=== PATIENT | female | born 1985 | race African-American/Black ===

== ENCOUNTER 2018-10-05 07:18 | Day surgery (SDC) | payer MEDICAID ==
[2018-10-03 17:03] LABS: PREOP HCG, QL SERUM NEGATIVE (NEGATIVE)
[2018-10-03 17:06] LABS: BASOPHILS % (AUTO) 0.4 % (0-1); EOSINOPHILS % (AUTO) 0.6 % (0-6); LYMPHOCYTES # (AUTO) 1.8 X10'3 (1.1-4.8); LYMPHOCYTES % (AUTO) 26.3 % (21-51); MEAN CORPUSCULAR HEMOGLOBIN 33.2 PG (27.0-31.0); MEAN CORPUSCULAR HGB CONC 33.5 g/dL (33.0-36.5); MEAN PLATELET VOLUME 9.6 FL (7.4-10.4); MONOCYTES # (AUTO) 0.3 X10'3 (0-0.9); MONOCYTES % (AUTO) 4.9 % (2-12); NEUTROPHILS # (AUTO) 4.5 X10'3 (1.8-7.7); NEUTROPHILS % (AUTO) 67.8 % (42-75); PRE OP HEMATOCRIT 40.5 % (35.0-45.0); PRE OP HEMOGLOBIN 13.6 g/dL (12.0-16.0); PRE OP PLATELET COUNT 285 X10'3 (140-440); RED BLOOD COUNT 4.09 X10'6 (4.20-5.60); RED CELL DISTRIBUTION WIDTH 13.6 % (11.5-14.5)
[2018-10-03 17:30] LABS: ALBUMIN 3.5 G/DL (3.4-5.0); ALBUMIN/GLOBULIN RATIO 0.8 (1.1-1.5); ALKALINE PHOSPHATASE 98 IU/L (46-116); BLOOD UREA NITROGEN 10 MG/DL (7-18); BUN/CREATININE RATIO 11.9 (6.6-38.0); CALCIUM 9.6 MG/DL (8.5-10.1); CHLORIDE 107 MMOL/L (99-107); CREATININE 0.84 MG/DL (0.40-0.90); PRE OP ALT 41 U/L (30-65); PRE OP ANION GAP 10 (8-16); PRE OP AST 19 U/L (10-37); PRE OP BILIRUB, TOTAL 0.3 MG/DL (0.0-1.0); PRE OP GLUCOSE 100 MG/DL (70-104); PRE OP POTASSIUM 3.6 MMOL/L (3.4-5.1); PRE OP SODIUM 141 MMOL/L (135-145); TOTAL CARBON DIOXIDE 24.5 MMOL/L (24-32); TOTAL PROTEIN 7.7 G/DL (6.4-8.2); eGFR > 90 ML/MIN
[~2018-10-05] VITALS: Ht 165.1 cm; Wt 100.7 kg
[2018-10-05] VITALS (7 sets, daily range): BP systolic 118–140; BP diastolic 80–88
[~2018-10-05 07:18] MED LIST: CBD; [UNRECOGNIZED DRUG - OTHER]; ringers solution, lacted 1,000 ML IV SCH
[2018-10-05] MEDS ORDERED: ringers solution, lacted 1,000 ML IV SCH (07:44)
[2018-10-05] MEDS ORDERED: ondansetron/PF 4mg/2ml inj IV PRN (07:45)
[2018-10-05] MEDS ORDERED: proCHLORperazine 10 MG/2 ml inj IV PRN (07:45)
[2018-10-05] MEDS ORDERED: meperidine/PF 25mg/ml syringe IV PRN ×3 (07:45)
[2018-10-05] MEDS ORDERED: morphine 4 MG/ML inj SYRINge IV PRN ×2 (07:45)
[2018-10-05] MEDS ORDERED: famotidine 20mg tablet PO ONE (07:50)
[2018-10-05] MEDS ORDERED: sevoflurane 250ml liquid IH ONE (09:26)
[2018-10-05] MEDS ORDERED: midazolam 2 mg/2 ml injection ONE (09:27)
[2018-10-05] MEDS ORDERED: fentaNYL/PF 50MCG/1 ML 2ML syringe ONE (09:27)
[2018-10-05] MEDS ORDERED: ondansetron/PF 4mg/2ml inj ONE (09:38)
[2018-10-05] MEDS ORDERED: glycopyrrolate 0.2mg/ml inj ONE (09:38)
[2018-10-05] MEDS ORDERED: propofol inj 20 ML IV ONE (09:38)
[2018-10-05] MEDS ORDERED: neostigmine methylsulfate 1 MG/ML 10ml vial ONE (09:38)
[2018-10-05] MEDS ORDERED: dexamethasone sod phosphate 4mg/ml inj. ONE (09:38)
[2018-10-05] MEDS ORDERED: rocuronium 10mg/ml inj IV ONE (09:38)
[2018-10-05] MEDS ORDERED: LIDOcaine 2% (20mg/ml) 5ml vial ONE (09:38)
--- NOTE | 2018-10-05 10:10 | NUR ---
Received from OR via bed, accompanied by Anesthesiologist. Report received. Initial physical assessment done and recorded.
--- NOTE | 2018-10-05 11:00 | NUR ---
Discharged home in good condition. No complaints of pain during post op period, no pain meds given no complaintsDischarge criteria met, discharge instructions given, demonstrates verbal understanding.
== END 2018-10-05 11:00 | disposition home or self-care (01) ==
LOC: PAS 07:18
PROVIDERS: ATTEND Obstetrics & Gynecology
DX: Z30.2 Encounter for sterilization (principal); J45.909 Unspecified asthma, uncomplicated; Z98.890 Other specified postprocedural states; Z91.013 Allergy to seafood; Z79.899 Other long term (current) drug therapy
CPT/HCPCS: 36415; 58670; 80053; 82948; 84703; 85025; J1100; J2001; J2250; J2405; J2704; J2710; J3010; J7120; A7000; J3490

== ENCOUNTER 2020-05-04 07:42 | Day surgery (SDC) | payer MEDICAID ==
[2020-05-01 16:03] LABS: BASOPHILS % (AUTO) 0.7 % (0-1); EOSINOPHILS # (AUTO) 0.1 X10'3 (0-0.9); EOSINOPHILS % (AUTO) 2.2 % (0-6); LYMPHOCYTES # (AUTO) 1.8 X10'3 (1.1-4.8); MEAN CORPUSCULAR HEMOGLOBIN 32.8 PG (27.0-31.0); MEAN CORPUSCULAR VOLUME 99.3 FL (78-98); MONOCYTES # (AUTO) 0.3 X10'3 (0-0.9); MONOCYTES % (AUTO) 5.3 % (2-12); NEUTROPHILS # (AUTO) 3.2 X10'3 (1.8-7.7); NEUTROPHILS % (AUTO) 58.8 % (42-75); PRE OP HEMATOCRIT 33.2 % (35.0-45.0); PRE OP PLATELET COUNT 298 X10'3 (140-440); RED BLOOD COUNT 3.34 X10'6 (4.20-5.60)
[2020-05-01 16:16] LABS: HCG SERUM QL NEGATIVE
[2020-05-01 16:19] LABS: PRE OP INR 1.2 INR; PRE OP PROTIME 12.4 SECONDS (9.0-12.0)
[2020-05-01 16:21] LABS: ALBUMIN 3.8 G/DL (3.4-5.0); ALKALINE PHOSPHATASE 70 IU/L (46-116); BLOOD UREA NITROGEN 6 MG/DL (7-18); BUN/CREATININE RATIO 7.6 (6.6-38.0); CALCIUM 9.2 MG/DL (8.5-10.1); CHLORIDE 108 MMOL/L (99-107); CREATININE 0.79 MG/DL (0.40-0.90); PRE OP ALT 20 U/L (30-65); PRE OP ANION GAP 5 (8-16); PRE OP AST 14 U/L (10-37); PRE OP BILIRUB, TOTAL 0.4 MG/DL (0.0-1.0); PRE OP GLUCOSE 84 MG/DL (70-104); PRE OP POTASSIUM 3.5 MMOL/L (3.4-5.1); PRE OP SODIUM 141 MMOL/L (135-145); TOTAL CARBON DIOXIDE 27.8 MMOL/L (24-32); TOTAL PROTEIN 7.5 G/DL (6.4-8.2); eGFR > 90 ML/MIN
[~2020-05-04] VITALS: Ht 162.6 cm; Wt 69.3 kg
[2020-05-04] VITALS (36 sets, daily range): BP systolic 110–141; BP diastolic 73–99
[~2020-05-04 07:42] MED LIST changes: -CBD; +NO HOME MEDS; -[UNRECOGNIZED DRUG - OTHER]; +ceFOXitin 2GM-NS 100mL ADDvant 100 ML IV ONE; +famotidine 20mg tablet PO ONE
[2020-05-04] MEDS ORDERED: fentaNYL/PF 50MCG/1 ML 2ML syringe IV PRN ×2 (10:05)
[2020-05-04] MEDS ORDERED: ringers solution, lacted 1,000 ML IV SCH (10:05)
[2020-05-04] MEDS ORDERED: ondansetron/PF 4mg/2ml inj IV PRN (10:05)
[2020-05-04] MEDS ORDERED: labetalol 20mg/4ml (5mg/ml) syringe IV PRN (10:05)
[2020-05-04] MEDS ORDERED: hydrALAZINE 20mg/ml inj. IV PRN (10:05)
[2020-05-04] MEDS ORDERED: morphine 4 MG/ML inj SYRINge IV PRN (10:05)
[2020-05-04] MEDS ORDERED: morphine 2 MG/ML inj. syringe IV PRN (10:05)
[2020-05-04] MEDS ORDERED: fentaNYL/PF 50MCG/1 ML 2ML syringe ONE (10:09)
[2020-05-04] MEDS ORDERED: LIDOcaine 2% (20mg/ml) 5ml vial ONE (10:09)
[2020-05-04] MEDS ORDERED: midazolam 2 mg/2 ml injection ONE (10:09)
[2020-05-04] MEDS ORDERED: propofol inj 20 ML IV ONE (10:09)
[2020-05-04] MEDS ORDERED: ketorolac trometh. 30mg/ml inj. ONE (10:10)
[2020-05-04] MEDS ORDERED: ondansetron/PF 4mg/2ml inj ONE (10:10)
[2020-05-04] MEDS ORDERED: dexamethasone sod phosphate 4mg/ml inj. ONE (10:25)
--- NOTE | 2020-05-04 10:57 | NUR ---
Received from OR via CASA, accompanied by Anesthesiologist DR ESTRELLA and report given by Anesthesiologist. PT VERY DROWSY, NO S/S OF DISTRESS/DISCOMFORT. GENOVEVA PAD IN PLACE, SMALL AMT OF BLOODY DRAINAGE ON PAD. Addendum: 05/04/20 at 1119 by Saray Collier RN Amended: Links added.
[2020-05-04] MEDS ORDERED: metoclopramide 5 mg/ml inj IV ONE (12:50)
--- NOTE | 2020-05-04 14:32 | NUR ---
PT UP AND ABLE TO VOID, PT STILL FEELS SLEEPY AND SLIGHTLY LIGHT HEADED WITH AMBULATION, WILL CONTINUE TO MONITOR AND INFORM DR GIL. LEE. Addendum: 05/04/20 at 1434 by Saray Collier RN Amended: Links added.
--- NOTE | 2020-05-04 14:55 | NUR ---
PT RESTING W/EYES CLOSED, HAD A HEART PAUSE, APPROXIMATELY 4 SECONDS, PT WAS SLEEPING STATED SHE DID NOT FEEL ANYTHING, RECHECKED BP, STABLE, CALL INTO DR TALLEY AND DR CARBAJAL UPDATED BOTH, DR CARBAJAL CALLED FOR A CARDIOLOGY CONSULT, AWAITING DR GONZALEZ TO ARRIVE. Addendum: 05/04/20 at 1725 by Saray Collier RN Amended: Links added.
--- NOTE | 2020-05-04 17:17 | NUR ---
DR GRADY OBANDO CAME IN TO SEE PT, LOOKED AT EKG AND STRIP FROM PACU CM W/PAUSE, ASSESSED PT, PLAN IS TO HAVE PT CONTACT HIS OFFICE TOMORROW AND COME IN AND GET A 48 HOUR CM HALTER AND D/C PT TO HOME. CALL INTO DR CARBAJAL AND DR TALLEY FOR UPDATE, BOTH IN AGREEMENT W/CARDIOLOGY ASSESSMENT AND OKAY TO D/C PT TO HOME. D/C INSTRUCTIONS GIVEN AND GONE OVER W/PT AND PTS WHO VERBALIZE UNDERSTANDING. PT D/CD VIA W/C TO PRIVATE VEHICLE W/O INCIDENT. Addendum: 05/04/20 at 1732 by Saray Collier RN Amended: Links added.
== END 2020-05-04 17:17 | disposition home or self-care (01) ==
LOC: PAS 07:42
PROVIDERS: ATTEND Obstetrics & Gynecology
DX: N93.9 Abnormal uterine and vaginal bleeding, unspecified (principal); N94.6 Dysmenorrhea, unspecified; D25.0 Submucous leiomyoma of uterus; G43.909 Migraine, unspecified, not intractable, without status migrainosus; F32.9 Major depressive disorder, single episode, unspecified; J45.909 Unspecified asthma, uncomplicated; F12.90 Cannabis use, unspecified, uncomplicated; Z87.891 Personal history of nicotine dependence; Z91.013 Allergy to seafood; Z20.828 Contact with and (suspected) exposure to other viral communicable diseases; Z79.01 Long term (current) use of anticoagulants; Z79.899 Other long term (current) drug therapy; Z98.51 Tubal ligation status; Z98.890 Other specified postprocedural states
CPT/HCPCS: 36415; 58353; 80053; 82948; 84703; 85025; 85610; 85730; 86885; 86900; 86901; 86922; 87635; 93005; J0694; J1100; J1885; J2001; J2250; J2270; J2405; J2704; J2765; J3010; J7030; 86920; A4264; A4618; J7120

== ENCOUNTER 2022-01-24 05:27 | Day surgery (SDC) | payer MEDICAID ==
[2022-01-19 11:49] LABS: BASOPHILS % (AUTO) 0.7 % (0-1); EOSINOPHILS # (AUTO) 0.1 X10'3 (0-0.9); EOSINOPHILS % (AUTO) 2.5 % (0-6); LYMPHOCYTES % (AUTO) 24.7 % (21-51); MEAN CORPUSCULAR HEMOGLOBIN 34.1 PG (27.0-31.0); MEAN CORPUSCULAR HGB CONC 33.7 g/dL (33.0-36.5); MEAN CORPUSCULAR VOLUME 101.2 FL (78-98); MEAN PLATELET VOLUME 9.5 FL (7.4-10.4); MONOCYTES # (AUTO) 0.3 X10'3 (0-0.9); MONOCYTES % (AUTO) 7.4 % (2-12); NEUTROPHILS # (AUTO) 2.5 X10'3 (1.8-7.7); NEUTROPHILS % (AUTO) 64.7 % (42-75); PRE OP HEMATOCRIT 37.2 % (35.0-45.0); PRE OP HEMOGLOBIN 12.5 g/dL (12.0-16.0); PRE OP PLATELET COUNT 239 X10'3 (140-440); RED BLOOD COUNT 3.67 X10'6 (4.20-5.60); RED CELL DISTRIBUTION WIDTH 13.8 % (11.5-14.5)
[2022-01-19 12:01] LABS: CLARITY,URINE CLEAR (Clear); COLOR,URINE YELLOW (Yellow); GLUCOSE, URINE NEGATIVE (Neg); KETONES,URINE NEGATIVE (Neg); LEUKOCYTE ESTERASE ,URINE NEGATIVE (Neg); NITRITES, URINE NEGATIVE (Neg); OCCULT BLOOD,URINE TRACE-INTACT (Neg); PH,URINE 5.5 (4.8-8.0); PROTEIN,URINE NEGATIVE (Neg); UROBILINOGEN,URINE 0.2 E.U/dL (0.2-1.0)
[2022-01-19 12:05] LABS: HCG SERUM QL NEGATIVE
[2022-01-19 12:07] LABS: UA COLLECTION TYPE FOLEY CATH
[2022-01-19 12:18] LABS: ALBUMIN 3.7 G/DL (3.4-5.0); ALKALINE PHOSPHATASE 70 IU/L (46-116); BLOOD UREA NITROGEN 9 MG/DL (7-18); BUN/CREATININE RATIO 11.3 (6.6-38.0); CALCIUM 8.6 MG/DL (8.5-10.1); CHLORIDE 109 MMOL/L (99-107); PRE OP ALT 27 U/L (30-65); PRE OP ANION GAP 10 (8-16); PRE OP AST 25 U/L (10-37); PRE OP BILIRUB, TOTAL 0.6 MG/DL (0.0-1.0); PRE OP GLUCOSE 85 MG/DL (70-104); PRE OP SODIUM 146 MMOL/L (135-145); TOTAL CARBON DIOXIDE 27.1 MMOL/L (24-32); TOTAL PROTEIN 7.4 G/DL (6.4-8.2); eGFR > 90 ML/MIN
[2022-01-19 12:20] LABS: PRE OP POTASSIUM 3.3 MMOL/L (3.4-5.1)
[2022-01-19 12:33] LABS: MUCUS STRANDS MODERATE /LPF (Neg); SQUAMOUS EPITHELIAL CELL,UR MANY /LPF (FEW)
[2022-01-19 12:34] LABS: RBC,URINE 0-2 /HPF (0-2); WBC,URINE 0-4 /HPF (0-4)
[2022-01-19 12:38] LABS: BACTERIA,URINE 1+ /HPF (Neg)
[2022-01-24] VITALS (28 sets, daily range): BP systolic 116–149; BP diastolic 79–99
[~2022-01-24] VITALS: Ht 175.3 cm; Wt 72.0 kg
[~2022-01-24 05:27] MED LIST changes: -ceFOXitin 2GM-NS 100mL ADDvant 100 ML IV ONE; -famotidine 20mg tablet PO ONE; -ringers solution, lacted 1,000 ML IV SCH
[2022-01-24] MEDS ORDERED: famotidine 20mg tablet PO ONE (05:30)
[2022-01-24] MEDS ORDERED: ceFOXitin 2GM-NS 100mL ADDvant 100 ML IV ONE (05:30)
[2022-01-24] MEDS: ringers solution, lacted 1,000 ML IV SCH ×7 (06:24→23:30)
[2022-01-24] MEDS ORDERED: BUPIVAcaine/PF 5 mg/ml 10ml ONE (06:45)
[2022-01-24] MEDS ORDERED: LIDOcaine 1% W/epiNEPHrine 1:100,000 20ml vial ONE (06:46)
[2022-01-24] MEDS ORDERED: ceFAZolin 1000mg inj ONE (06:46)
[2022-01-24] MEDS ORDERED: meperidine/PF 25mg/ml syringe IV PRN ×2 (07:35)
[2022-01-24] MEDS ORDERED: ringers solution, lacted 1,000 ML IV SCH (07:35)
[2022-01-24] MEDS ORDERED: HYDROmorphone/PF 0.2 MG/ML SYRINGE IV PRN (07:35)
[2022-01-24] MEDS ORDERED: ondansetron/PF 4mg/2ml inj IV PRN ×2 (07:35→10:10)
[2022-01-24] MEDS ORDERED: sevoflurane 250ml liquid IH ONE (07:42)
[2022-01-24] MEDS ORDERED: midazolam 1 mg/ML 2ml injection ONE (07:42)
[2022-01-24] MEDS ORDERED: fentaNYL /PF 50mcg/ml 5ml ampule ONE (07:43)
[2022-01-24] MEDS ORDERED: fluoroscein sod 10% (100mg/ml) 5ml vial ONE (09:54)
[2022-01-24] MEDS ORDERED: rocuronium 10mg/ml inj IV ONE (09:54)
[2022-01-24] MEDS ORDERED: glycopyrrolate 0.2mg/ml inj ONE (09:54)
[2022-01-24] MEDS ORDERED: neostigmine methylsulfate 1 MG/ML 10ml vial ONE (09:54)
[2022-01-24] MEDS ORDERED: dexamethasone sod phosphate 4mg/ml inj. ONE (09:54)
[2022-01-24] MEDS ORDERED: propofol inj 20 ML IV ONE (09:54)
[2022-01-24] MEDS ORDERED: LIDOcaine 2% (20mg/ml) 5ml vial ONE (09:54)
[2022-01-24] MEDS ORDERED: ondansetron/PF 4mg/2ml inj ONE (09:54)
[2022-01-24] MEDS ORDERED: acetaminophen 1,000mg/100ml IV 100 ML IV ONE (10:02)
[2022-01-24] MEDS ORDERED: diphenhydrAMINE 50 mg/ml inj IV PRN (10:10)
[2022-01-24] MEDS ORDERED: naloxone 0.4 mg/ml inj IV PRN (10:10)
[2022-01-24] MEDS ORDERED: oxyCODONE/APAP 5-325mg tablet PO PRN (10:10)
[2022-01-24] MEDS ORDERED: mag hydrox/Alum hydrox/simeth 30ml oral suspension PO PRN (10:10)
[2022-01-24] MEDS ORDERED: temazepam 15mg capsule PO PRN (10:10)
[2022-01-24] MEDS ORDERED: normal saline 500ML IV soln IV PRN (10:10)
[2022-01-24] MEDS ORDERED: sugammadex 200mg/2ml injection IV ONE (10:15)
--- NOTE | 2022-01-24 10:16 | NUR ---
Received from OR via BED, accompanied by Anesthesiologist DR DELANEY and report given by Anesthesiologist AND FIGHT MANAGER. PT VERY DROWSY W/ETT IN PLACE, NO S/S OF DISTRESS/DISCOMFORT. PT ABDOMEN W/3 LAP SITES W/DERMABOND AND STERI-STRIPS/BAND AIDS COVERING CDI, GENOVEVA PAD IN PLACE, NO DRAINAGE. GOLDEN CATHETER TO GRAVITY DRAINAGE W/BRIGHT YELLOW/URINE IN DRAINAGE BAG. Addendum: 01/24/22 at 1043 by Saray Collier RN Amended: Links added.
[2022-01-24] MEDS: ketorolac trometh. 30mg/ml inj. IV PRN ×3 (10:46→23:29)
[2022-01-24] MEDS: HYDROmorphone/PF 0.2 MG/ML SYRINGE IV PRN ×6 (10:58→12:36)
--- NOTE | 2022-01-24 12:56 | NUR ---
Report called to receiving nurse. Transferred via BED 1 BAG Belongings SENT W/PT TO ROOM 4012B, BLL, CALL LIGHT GIVEN, SIDE RAILS UP X 2. NURSES AID AT BEDSIDE TO RECEIVE PT, PTS S/O PRESENT, RECEIVING RN NOTIFIED OF PTS ARRIVAL. Special Issues communicated to receiving nurse. YES. Addendum: 01/24/22 at 1400 by Saray Collier RN Amended: Links added.
[2022-01-24] MEDS: oxyCODONE/APAP 5-325mg tablet PO PRN ×2 (15:19→20:01)
[2022-01-24] MEDS: simethicone 80mg chew tab PO SCH ×2 (15:19→17:16)
--- NOTE | 2022-01-24 18:24 | NUR ---
Problems reprioritized. Patient report given, questions answered & plan of care reviewed with Ciara LAZO.
[2022-01-24] MEDS: docusate sod 100mg capsule PO SCH (19:46)
[2022-01-25 02:31] VITALS: BP 123/70
[2022-01-25 06:00] VITALS: BP 112/66
--- NOTE | 2022-01-25 06:50 | NUR ---
SHIMA HENLEY D/C'Deborah PERRY Addendum: 01/25/22 at 0651 by Arina Wills RN Amended: Links added.
[2022-01-25 07:05] LABS: BASOPHILS % (AUTO) 0.2 % (0-1); EOSINOPHILS % (AUTO) 0.2 % (0-6); HEMATOCRIT 29.6 % (35.0-45.0); HEMOGLOBIN 10.1 g/dl (12.0-16.0); LYMPHOCYTES # (AUTO) 1.1 X10'3 (1.1-4.8); LYMPHOCYTES % (AUTO) 11.8 % (21-51); MEAN CORPUSCULAR HEMOGLOBIN 34.5 PG (27.0-31.0); MEAN CORPUSCULAR HGB CONC 34.3 g/dL (33.0-36.5); MEAN CORPUSCULAR VOLUME 100.8 FL (78-98); MEAN PLATELET VOLUME 9.9 FL (7.4-10.4); MONOCYTES # (AUTO) 0.6 X10'3 (0-0.9); MONOCYTES % (AUTO) 6.1 % (2-12); NEUTROPHILS # (AUTO) 7.8 X10'3 (1.8-7.7); NEUTROPHILS % (AUTO) 81.7 % (42-75); PLATELET COUNT 185 X10'3 (140-440); RED BLOOD COUNT 2.94 X10'6 (4.20-5.60); RED CELL DISTRIBUTION WIDTH 13.6 % (11.5-14.5); WHITE BLOOD COUNT 9.5 X10'3 (4.5-11.0)
[2022-01-25 07:34] LABS: ALBUMIN 3.1 G/DL (3.4-5.0); ANION GAP 11 (8-16); BLOOD UREA NITROGEN 5 MG/DL (7-18); BUN/CREATININE RATIO 7.6 (6.6-38.0); CALCIUM 8.5 MG/DL (8.5-10.1); CHLORIDE 106 MMOL/L (99-107); CREATININE 0.66 MG/DL (0.40-0.90); GLUCOSE 94 MG/DL (70-104); SODIUM 140 MMOL/L (135-145); TOTAL CARBON DIOXIDE 23.2 MMOL/L (24-32); eGFR > 90 ML/MIN
[2022-01-25 07:36] LABS: POTASSIUM 2.9 MMOL/L (3.5-5.1)
[2022-01-25] MEDS: docusate sod 100mg capsule PO SCH (07:46)
[2022-01-25] MEDS: simethicone 80mg chew tab PO SCH (07:46)
[2022-01-25] MEDS ORDERED: potassium Cl 20 mEq SR tablet PO STA (09:15)
== END 2022-01-25 11:04 | disposition home or self-care (01) ==
LOC: PAS 05:27 → ORTHO 4S 10:13 → UNDOADMOB 10:13 → ORTHO 4S 10:13 → PAS 01-25 11:04
PROVIDERS: ATTEND Obstetrics & Gynecology
DX: N80.0 Endometriosis of uterus (principal); N92.0 Excessive and frequent menstruation with regular cycle; N83.8 Other noninflammatory disorders of ovary, fallopian tube and broad ligament; F41.8 Other specified anxiety disorders; E03.9 Hypothyroidism, unspecified; D64.9 Anemia, unspecified; Z79.899 Other long term (current) drug therapy; Z98.890 Other specified postprocedural states; Z88.6 Allergy status to analgesic agent; Z91.013 Allergy to seafood; G43.909 Migraine, unspecified, not intractable, without status migrainosus
CPT/HCPCS: 36415; 57425; 58552; 71046; 80048; 80053; 81001; 82948; 84443; 84703; 85025; 86885; 86900; 86901; 86922; 93005; C1758; J0131; J0690; J0694; J1100; J1170; J1885; J2250; J2405; J2704; J2710; J3010; J3490; J7030; J7120; Z7506; Z7508; Z7512; 86920; A4355; A4618; A6250; A7000; G0378